=== PATIENT | female | born 1980 | race Caucasian/White ===

== ENCOUNTER 2020-08-05 12:28 | Outpatient (REF) | payer BC, SELFPAY ==
[2020-08-05 21:53] LABS: Hemoglobin A1C 5.4 % (<5.7)
[2020-08-05 21:55] LABS: Calculated LDL 119 mg/dL (<100); Cholesterol 237 mg/dL (<200); Glucose 94 mg/dL (74-106); HDL Cholesterol 100 mg/dL (40-60); Triglyceride 94 mg/dL (<150)
== END 2020-08-05 12:29 | disposition home or self-care (01) ==
LOC: NCHCN 12:28
PROVIDERS: PCP Nurse Practitioner Community Health; Visit Provider Nurse Practitioner Community Health
DX: Z13.1 Encounter for screening for diabetes mellitus (principal); Z13.220 Encounter for screening for lipoid disorders
CPT/HCPCS: 80061; 82947; 83036

== ENCOUNTER 2021-09-02 19:28 | Outpatient (REF) | payer BC, SELFPAY ==
[2021-09-02 15:54] LABS: Calculated LDL 129 mg/dL (<100); Cholesterol 232 mg/dL (<200); Glucose 99 mg/dL (74-106); HDL Cholesterol 90 mg/dL (40-60); Triglyceride 66 mg/dL (<150)
[2021-09-02 22:08] LABS: Hemoglobin A1C 5.5 % (<5.7)
== END 2021-09-02 19:29 | disposition home or self-care (01) ==
LOC: NCHCN 19:28
PROVIDERS: PCP Nurse Practitioner Community Health; Visit Provider Nurse Practitioner Family
DX: Z13.1 Encounter for screening for diabetes mellitus (principal); Z83.3 Family history of diabetes mellitus; Z13.220 Encounter for screening for lipoid disorders
CPT/HCPCS: 80061; 82947; 83036

== ENCOUNTER 2022-09-08 09:42 | Outpatient (REF) | payer BC, SELFPAY ==
--- NOTE | 2022-09-08 08:00 | PAPFT_PTH ---
PATIENT: Ruma Rivera LOC: [facility] U#:[id number] AGE/SX: 42/F ROOM: RE09/08/[address]: Katie Garcia : 1980 BED: DIS: 09/08/2022 SPEC #: [id number] RECD: 09/08/22 17:48 STATUS: PAOLA REQ #: [id number] SOBEIDA: 09/08/22 08:[address]: Katie Garcia DEPT: [facility] Cytology RECD BY: Ericka Murphy ENTERED: 09/08/22 17:48 SP TYPE: PAPFT OTHR DR: Luh Jordan Tissues: 1 - CX/ENDOCX FOR PAP SMEARS Procedures: PAP THIN PREP/[facility] Screening HPV DNA PROBE Comments: [id number] (CHLAMYDIA/GC)
[2022-09-08 16:05] LABS: Calculated LDL 132 mg/dL (<100); Cholesterol 233 mg/dL (<200); Glucose 85 mg/dL (74-106); HDL Cholesterol 87 mg/dL (40-60); Triglyceride 71 mg/dL (<150)
[2022-09-09 14:30] LABS: Chlamydia Result Negative (Negative); GC Result Negative (Negative)
== END 2022-09-08 09:43 | disposition home or self-care (01) ==
LOC: NCHCN 09:42
PROVIDERS: PCP Nurse Practitioner Community Health; Visit Provider Nurse Practitioner Family
DX: Z00.00 Encounter for general adult medical examination without abnormal findings (principal); Z13.220 Encounter for screening for lipoid disorders; Z13.1 Encounter for screening for diabetes mellitus; Z12.4 Encounter for screening for malignant neoplasm of cervix; Z11.3 Encounter for screening for infections with a predominantly sexual mode of transmission; Z11.51 Encounter for screening for human papillomavirus (HPV)
CPT/HCPCS: 80061; 82947; 87491; 87591; 88142; 87624